=== PATIENT | male | born 1960 | race Caucasian/White ===

== ENCOUNTER 2018-07-01 10:18 | Emergency (ER) | payer OTHER ==
[~2018-07-01] VITALS: Ht 175.3 cm; Wt 108.9 kg
--- NOTE | 2018-07-01 10:22 | NUR ---
PT WAS NOT FOUND IN THE ER WAITING ROOM.
--- NOTE | 2018-07-01 10:25 | NUR ---
JOSE ARMANDO CAMPOS AT BEDSIDE FOR MSE.
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
--- NOTE | 2018-07-01 10:42 | NUR ---
PT TAKEN TO RADIOLOGY FOR CT SCAN.
--- NOTE | 2018-07-01 11:05 | NUR ---
PT BACK IN ER FROM RADIOLOGY.
--- NOTE | 2018-07-01 12:52 | NUR ---
DR MEJIAS MADE PATIENT AWARE OF TEST RESULTS. WILL DC HOME
--- NOTE | 2018-07-01 12:55 | NUR ---
Patient discharged to home in stable conditon. Written and verbal after care instructions given. Patient verbalizes understanding of instructions.
[2018-07-01 12:56] VITALS: BP 140/88
== END 2018-07-01 12:58 | disposition home or self-care (01) ==
LOC: ER 10:18
DX: S00.83XA Contusion of other part of head, initial encounter (principal); S43.402A Unspecified sprain of left shoulder joint, initial encounter; Z88.0 Allergy status to penicillin; Z88.5 Allergy status to narcotic agent; Z88.8 Allergy status to other drugs, medicaments and biological substances; Y04.2XXA Assault by strike against or bumped into by another person, initial encounter; Y93.89 Activity, other specified; Y92.89 Other specified places as the place of occurrence of the external cause; Y99.8 Other external cause status
CPT/HCPCS: 70450; 70486; 73030; A4663

== ENCOUNTER 2022-11-18 10:46 | Emergency (ER) | payer OTHER ==
[~2022-11-18] VITALS: Ht 177.8 cm; Wt 109.8 kg
[~2022-11-18 10:46] MED LIST: OXYC-128 PO
[2022-11-18 10:55] VITALS: O2SAT 96
[2022-11-18] MEDS ORDERED: TDAP DIPH,PERTUSS,TET VAC/PF 0.5 ML DISP.SYRIN IM ONE ×2 (11:23→11:45)
== END 2022-11-18 11:53 | disposition home or self-care (01) ==
LOC: ER 10:46
DX: S61.411A Laceration without foreign body of right hand, initial encounter (principal); Z88.0 Allergy status to penicillin; Z88.8 Allergy status to other drugs, medicaments and biological substances; Z79.899 Other long term (current) drug therapy; W26.8XXA Contact with other sharp object(s), not elsewhere classified, initial encounter; Y93.89 Activity, other specified; Y92.89 Other specified places as the place of occurrence of the external cause; Y99.8 Other external cause status
CPT/HCPCS: 90715; A4663

== ENCOUNTER 2024-12-01 10:00 | Emergency (ER) | payer OTHER ==
[~2024-12-01] VITALS: Ht 175.3 cm; Wt 99.8 kg
[2024-12-01 10:13] VITALS: BP 139/86
[2024-12-01 12:05] LABS: PLATELET COUNT (AUTO) 205 K/uL (152-348); RED BLOOD CELL COUNT(AUTO) 4.24 MIL/uL (4.06-5.63); RED CELL DISTRIBUTION WIDTH 12.4 % (12.1-16.2); WHITE BLOOD COUNT (AUTO) 6.0 K/uL (3.6-10.2)
[2024-12-01 12:42] LABS: CREATININE 1.0 mg/dL (0.6-1.3); SODIUM SERUM 140 mmol/L (136-145); UREA NITROGEN, BLOOD 14 mg/dL (7-18)
[2024-12-01 12:47] LABS: ASPARTATE AMINOTRANSFERASE 22 U/L (15-37); TOTAL PROTEIN, SERUM 7.2 g/dL (6.4-8.2)
[2024-12-01] MEDS ORDERED: AZIT500T PO (12:50)
[2024-12-01] MEDS ORDERED: PRED50TA PO (12:50)
[2024-12-01] MEDS ORDERED: PROM118S5 PO (12:50)
[2024-12-01] MEDS: AZITHROMYCIN 250 MG TABLET PO ONE (13:44)
[2024-12-01 13:45] VITALS: BP 131/77; TEMP 98.3; O2SAT 95
== END 2024-12-01 13:46 | disposition home or self-care (01) ==
LOC: ER 10:00
DX: J18.9 Pneumonia, unspecified organism (principal); I51.9 Heart disease, unspecified; J18.0 Bronchopneumonia, unspecified organism; Z79.52 Long term (current) use of systemic steroids; Z86.718 Personal history of other venous thrombosis and embolism; Z79.899 Other long term (current) drug therapy; Z88.0 Allergy status to penicillin; Z88.8 Allergy status to other drugs, medicaments and biological substances
CPT/HCPCS: 36415; 71045; 83690; 84484; 85025; 85730; A4606; A4663